=== PATIENT | male | born 1955 | race Caucasian/White ===

== ENCOUNTER 2018-10-25 10:46 | Emergency (ER) | payer SELFPAY ==
[~2018-10-25] VITALS: Ht 182.9 cm; Wt 75.7 kg
[~2018-10-25 10:46] MED LIST: DONEPEZIL HCL5 MG PO; FLAGYL500 MG PO; LASIX20 MG PO; MELATONIN3 MG PO; NORCO 10-325 T1 EACH PO; SOMA250 MG; SOMA350 MG PO; VICODIN 5-5001 EACH
--- OUTSIDE RECORDS SUMMARY | 2018-10-25 10:50 | XMS REPORT ---
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 Allergies, Adverse Reactions, Alerts This patient has no known allergies or adverse reactions. Medications This patient has no known medications. Results Test Description Test Time Test Comments Text Results Atomic Results Result Comments ABDOMEN COMP INCL UPR or DECUB [place] [address] Patient Name: ELLIOT LINTON MR #: [id number] : 1955 Age/Sex: 61/M Req #: [id number] [facility] Physician: NAEEM MOFFETT MD Ordered by: NAEEM MOFFETT MD Report #: [id number] Location: MED/SURG Room/Bed: [facility] Procedure: [id number] DX/ABDOMEN COMP INCL UPR or DECUB Exam Date: 09/08/17 Exam Time: 0845 REPORT STATUS: Signed PROCEDURE: ABDOMEN COMP INCL UPR OR DECUB INDICATION: Colon resection COMPARISON: [facility], CT, CT ABDOMEN/PELVIS W, 08/24/2017, 14:29. FINDINGS: There is free air within the abdomen as well as surgical manolo to the left of midline and lower midline manolo. Gaseous distention of small and large bowel loops likely represents an ileus. CONCLUSION: 1. Free air in the abdomen related to recent surgery. 2. Dilated loops of bowel compatible with an ileus. Kierra Odom D.O. Dictated by: Kierra Odom D.O. on 09/08/2017 at 11:34 Electronically approved by: Kierra Odom D.O. on 09/08/2017 at 11:34 Dictated By: KIERRA ODOM DO 1134 Transcribed By: PAVAN on 09/08/17 1134 COPY TO: NAEEM MOFFETT MD CT ABDOMEN/PELVIS W [place] [address] Patient Name: ELLIOT LINTON MR #: [id number] : 1955 Age/Sex: 61/M Req #: [id number] Adm Physician: Ordered by: NATHALY CARRILLO Report #: [id number] Location: ER Room/Bed: Procedure: [id number] CT/CT ABDOMEN/PELVIS W Exam Date: 08/24/17 Exam Time: 1425 REPORT STATUS: Signed PROCEDURE: CT ABDOMEN AND PELVIS WITH CONTRAST TECHNIQUE: The abdomen and pelvis were scanned utilizing a multidetector helical scanner from the diaphragm to the lesser trochanter after the IV administration of 100 cc of Isovue 370 and the oral administration of Gastroview. Coronal and sagittal multiplanar reformations were obtained. COMPARISON: CT abdomen and pelvis 04/17/2017. INDICATIONS: ABDOMINAL PAIN FINDINGS: LOWER THORAX: Normal. HEPATOBILIARY: No focal hepatic lesions. No biliary ductal dilatation. The gallbladder is contracted. SPLEEN: No splenomegaly. PANCREAS: No focal masses or ductal dilatation. ADRENALS: No adrenal nodules. KIDNEYS/URETERS: No hydronephrosis, stones, or solid mass lesions. PELVIC ORGANS/BLADDER: Unremarkable. PERITONEUM / RETROPERITONEUM: No free air or fluid. LYMPH NODES: No lymphadenopathy. VESSELS: Unremarkable. GI TRACT: Numerous diverticula are present in the descending and sigmoid colon. Short segment of bowel wall thickening is present in the distal descending colon, with adjacent soft tissue inflammatory changes, series 2 image 55. Appendectomy. Moderate amount of retained feces limits intraluminal evaluation of the colon. No distention or wall thickening. BONES AND SOFT TISSUES: Degenerative changes of the lumbar spine. IMPRESSION: Acute diverticulitis of the distal descending colon, without evidence of obstruction, perforation, or drainable fluid collection. Dictated by: Ana Hooks M.D. on 08/24/2017 at 15:25 Electronically approved by: Ana Hooks M.D. on 08/24/2017 at 15:25 Dictated By: ANA HOOKS MD 1525 Transcribed By: PAVAN on 08/24/17 1525 COPY TO: NATHALY CARRILLO
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
== END 2018-10-25 14:36 | disposition home or self-care (01) ==
LOC: ER 10:46
DX: G89.11 Acute pain due to trauma (principal); S00.83XA Contusion of other part of head, initial encounter; M54.2 Cervicalgia; S20.212A Contusion of left front wall of thorax, initial encounter; Y04.0XXA Assault by unarmed brawl or fight, initial encounter; Y92.008 Other place in unspecified non-institutional (private) residence as the place of occurrence of the external cause
CPT/HCPCS: 70450; 71111; 72125; 99284

== ENCOUNTER 2024-04-21 14:13 | Emergency (ER) | payer SELFPAY ==
[~2024-04-21] VITALS: Ht 182.9 cm; Wt 102.1 kg
[2024-04-21 14:30] VITALS: TEMP 98.2
[2024-04-21 15:19] LABS: BASOPHILS % 0.6 % (0.0-1.0); EOSINOPHILS # (AUTO) 0.1 (0.0-0.4); EOSINOPHILS % 1.6 % (0.0-6.0); HEMATOCRIT 39.3 % (38.2-49.6); HEMOGLOBIN 13.1 g/dL (14.0-18.0); LYMPHOCYTES # (AUTO) 1.6 (1.0-3.2); LYMPHOCYTES % 24.8 % (18.0-39.1); MEAN CORPUSCULAR HEMOGLOBIN 30.9 pg (28-32); MEAN CORPUSCULAR HGB CONC 33.3 g/dL (31-35); MEAN CORPUSCULAR VOLUME 92.7 fL (81-99); MONOCYTES # (AUTO) 0.6 (0.2-0.8); MONOCYTES % 9.8 % (4.4-11.3); NEUTROPHILS # (AUTO) 3.9 (2.1-6.9); NEUTROPHILS % 61.2 % (38.7-80.0); PLATELET COUNT 251 x10e3/uL (140-360); RED BLOOD COUNT 4.24 x10e6/uL (4.3-5.7); RED CELL DISTRIBUTION WIDTH 17.2 % (11.7-14.4); WHITE BLOOD COUNT 6.41 x10e3/uL (4.8-10.8)
[2024-04-21 15:31] LABS: INR 0.89; PARTIAL THROMBOPLASTIN TIME 27.5 seconds (23.8-35.5); PROTHROMBIN TIME 12.7 seconds (11.9-14.5)
[2024-04-21 15:38] LABS: ALBUMIN 3.4 g/dL (3.5-5.0); ALBUMIN/GLOBULIN RATIO 1.1 (0.8-2.0); ANION GAP 16.6 mmol/L (8-16); CALCIUM 9.2 mg/dL (8.4-10.2); CREATININE, SERUM 0.9 mg/dL (0.72-1.25); POTASSIUM 4.6 mmol/L (3.5-5.1); TOTAL PROTEIN 6.4 g/dL (6.5-8.1)
[2024-04-21 15:43] LABS: BILIRUBIN,URINE LARGE (NEGATIVE); CLARITY,URINE TURBID (CLEAR); COLOR,URINE BROWN (YELLOW); GLUCOSE, URINE 1+ (NEGATIVE); KETONES,URINE TRACE (NEGATIVE); LEUKOCYTE ESTERASE ,URINE NEGATIVE (NEGATIVE); NITRITE,URINE NEGATIVE (NEGATIVE); PH,URINE 5.5 (5 - 7); PROTEIN,URINE DIPSTICK 2+ (NEGATIVE)
[2024-04-21] MEDS ORDERED: IOPAMIDOL 370 MG/ML 100 ML INFUS..BTL INJ ONE (15:57)
[2024-04-21 15:58] LABS: BACTERIA,URINE RARE /HPF
[2024-04-21 17:27] VITALS: PULSE 68; RESP 16
[2024-04-21 22:18] VITALS: BP 147/98; PULSE 68; RESP 16; TEMP 98.2; O2SAT 100
== END 2024-04-21 20:30 | disposition other institution (70) ==
LOC: ER 16:21
DX: R14.0 Abdominal distension (gaseous) (principal); K83.1 Obstruction of bile duct; C80.1 Malignant (primary) neoplasm, unspecified; K57.90 Diverticulosis of intestine, part unspecified, without perforation or abscess without bleeding; Z11.52 Encounter for screening for COVID-19
CPT/HCPCS: 36415; 71045; 74177; 76705; 80053; 81001; 82140; 83605; 83690; 85025; 85610; 85730; 87040; 93005; 99284; J2543; Q9967; U0002

== ENCOUNTER 2024-08-24 09:35 | Emergency (ER) | payer SELFPAY ==
[~2024-08-24] VITALS: Ht 182.9 cm; Wt 79.4 kg
[2024-08-24 09:35] VITALS: TEMP 98.4
[2024-08-24 10:19] LABS: BASOPHILS % 0.4 % (0.0-1.0); EOSINOPHILS # (AUTO) 0.1 (0.0-0.4); EOSINOPHILS % 1.1 % (0.0-6.0); HEMOGLOBIN 10.6 g/dL (14.0-18.0); LYMPHOCYTES # (AUTO) 1.7 (1.0-3.2); MEAN CORPUSCULAR HEMOGLOBIN 31.8 pg (28-32); MEAN CORPUSCULAR HGB CONC 31.2 g/dL (31-35); MEAN CORPUSCULAR VOLUME 102.1 fL (81-99); MONOCYTES # (AUTO) 0.7 (0.2-0.8); MONOCYTES % 8.7 % (4.4-11.3); NEUTROPHILS # (AUTO) 5.2 (2.1-6.9); NEUTROPHILS % 66.5 % (38.7-80.0); PLATELET COUNT 406 x10e3/uL (140-360); RED BLOOD COUNT 3.33 x10e6/uL (4.3-5.7); RED CELL DISTRIBUTION WIDTH 15.8 % (11.7-14.4); WHITE BLOOD COUNT 7.85 x10e3/uL (4.8-10.8)
[2024-08-24 10:32] LABS: PARTIAL THROMBOPLASTIN TIME 37.4 seconds (23.8-35.5)
[2024-08-24 10:36] LABS: ALBUMIN 2.3 g/dL (3.5-5.0); ALBUMIN/GLOBULIN RATIO 0.5 (0.8-2.0); BILIRUBIN,TOTAL 15.6 mg/dL (0.2-1.2); CALCIUM 9.2 mg/dL (8.4-10.2); CREATININE, SERUM 0.75 mg/dL (0.72-1.25); TOTAL PROTEIN 6.9 g/dL (6.5-8.1)
[2024-08-24 10:38] LABS: INR 1.38; PROTHROMBIN TIME 17.7 seconds (11.9-14.5)
[2024-08-24] MEDS: KETOROLAC TROMETHAMINE 30 MG/ML VIAL IV STA (11:18)
[2024-08-24] MEDS: METHOCARBAMOL 750 MG TAB PO ONE (11:18)
[2024-08-24] MEDS: LIDOCAINE HCL 1% LOCAL INJ 20 ML VIAL INJ ONE (11:21)
[2024-08-24 11:30] VITALS: PULSE 70; RESP 16; O2SAT 99
== END 2024-08-24 11:50 | disposition home or self-care (01) ==
LOC: ER 09:49
DX: T85.628A Displacement of other specified internal prosthetic devices, implants and grafts, initial encounter (principal); K75.0 Abscess of liver; K21.9 Gastro-esophageal reflux disease without esophagitis; M54.9 Dorsalgia, unspecified; G89.29 Other chronic pain; Z87.19 Personal history of other diseases of the digestive system
CPT/HCPCS: 12001; 36415; 74176; 80053; 85025; 85610; 85730; 99284; J1885; J2003

== ENCOUNTER 2024-08-28 10:03 | Emergency (ER) | payer SELFPAY ==
[~2024-08-28] VITALS: Ht 182.9 cm; Wt 79.4 kg
[2024-08-28 10:10] VITALS: TEMP 98.4
[2024-08-28] MEDS: HYDROCODONE/APAP 10MG-325MG TAB PO ONE (10:43)
[2024-08-28 11:00] VITALS: PULSE 89; RESP 16; O2SAT 99
== END 2024-08-28 11:50 | disposition home or self-care (01) ==
LOC: ER 10:11
DX: M54.9 Dorsalgia, unspecified (principal); G89.29 Other chronic pain; K76.9 Liver disease, unspecified; K21.9 Gastro-esophageal reflux disease without esophagitis; Z87.19 Personal history of other diseases of the digestive system
CPT/HCPCS: 99282